=== PATIENT | male | born 1995 ===

== ENCOUNTER 2017-05-17 02:04 | Emergency (ER) | payer OTHER, MEDICAID ==
[2017-05-17 02:25] VITALS: BP 142/80; PULSE 74; RESP 16; TEMP 98.1; O2SAT 100
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
== END 2017-05-17 04:06 | disposition home or self-care (01) ==
LOC: H.ER 02:04
DX: S50.12XA Contusion of left forearm, initial encounter (principal); V43.52XA Car driver injured in collision with other type car in traffic accident, initial encounter; Y92.410 Unspecified street and highway as the place of occurrence of the external cause